=== PATIENT | male | born 1985 | race Hispanic/Latino ===

== ENCOUNTER 2021-03-02 20:18 | Emergency (ER) | payer OTHER, SELFPAY ==
[~2021-03-02] VITALS: Ht 177.8 cm; Wt 167.4 kg
[2021-03-02] MEDS ORDERED: 0.9%NACL 1000ML 1,000 ML IV ONE (21:00)
[2021-03-02 21:03] LABS: APPEARANCE,URINE CLOUDY (CLEAR); BILIRUBIN,URINE NEGATIVE (NEGATIVE); COLOR,URINE YELLOW (YELLOW); GLUCOSE, URINE (UA) NEGATIVE (NEGATIVE); KETONES,URINE 5 mg/dL (NEGATIVE); LEUKOCYTE ESTERASE ,URINE LARGE (NEGATIVE); NITRATE,URINE POSITIVE (NEGATIVE); OCCULT BLOOD,URINE SMALL (NEGATIVE); PROTEIN,URINE 100 mg/dL (NEGATIVE); UROBILINOGEN,URINE 0.2 mg/dL (0.2-1.0)
[2021-03-02 21:09] LABS: BASOPHILS % (AUTO) 0.3 % (0.0-5.0); EOSINOPHILS % (AUTO) 0.1 % (0.0-8.0); HEMATOCRIT 40.7 % (42-54); LYMPHOCYTES % (AUTO) 15.9 % (21.0-51.0); MEAN CORPUSCULAR HEMOGLOBIN 27.6 pg (27.0-33.0); MEAN CORPUSCULAR HGB CONC 32.9 g/dL (32.0-36.0); MEAN CORPUSCULAR VOLUME 83.7 fL (79-99); MONOCYTES % (AUTO) 12.8 % (3.0-13.0); NEUTROPHILS % (AUTO) 70.4 % (40.0-77.0); PLATELET COUNT (AUTO) 229 K/uL (130-400); RED BLOOD CELL COUNT(AUTO) 4.86 MIL/uL (4.50-6.20); RED CELL DISTRIBUTION WIDTH 13.8 % (11.0-15.5)
[2021-03-02 21:11] LABS: BACTERIA,URINE Few /HPF (None Seen); SQUAMOUS EPITHELIAL CELL,UR 0-2 /HPF (0-2); WBC,URINE TNTC /HPF (0-1)
[2021-03-02 21:21] LABS: CREATININE 1.3 mg/dL (0.5-1.5); POTASSIUM 3.6 mmol/L (3.5-5.1)
[2021-03-02 21:25] LABS: ALBUMIN 3.4 g/dL (3.5-5.0); BILIRUBIN,TOTAL 0.5 mg/dL (0.2-1.0); TOTAL PROTEIN, SERUM 7.6 g/dL (6.0-8.3)
[2021-03-02] MEDS ORDERED: CEFTRIAXONE 1G VIAL IVP ONE (21:30)
[2021-03-02] MEDS ORDERED: PHENAZOPYRIDINE HCL 200 MG TABLET PO ONE (21:30)
[2021-03-02] MEDS ORDERED: LEVOFLOXACIN 500 MG TABLET PO SCH (22:00)
[2021-03-02] MEDS ORDERED: METRONIDAZOLE 500 MG TABLET PO SCH (22:00)
[2021-03-02] MEDS ORDERED: AZITHROMYCIN 500MG+NS 250ML IV ONE (22:30)
[2021-03-02] MEDS ORDERED: CIPR-278 PO (22:42)
[2021-03-02] MEDS ORDERED: ONDA4TAB10 PO (22:42)
[2021-03-02] MEDS ORDERED: AZIT500T PO (22:42)
[2021-03-02 23:39] VITALS: BP 112/56
== END 2021-03-02 23:40 | disposition home or self-care (01) ==
LOC: EDH 20:18
DX: N39.0 Urinary tract infection, site not specified (principal); I95.1 Orthostatic hypotension; I10 Essential (primary) hypertension; E66.9 Obesity, unspecified; Z68.43 Body mass index [BMI] 50.0-59.9, adult
CPT/HCPCS: 36415; 80053; 81001; 85025; 86140; 87088; 96361; 96374; 99284; J0696; J7030; 96375